=== PATIENT | male | born 1975 | race Caucasian/White ===

== ENCOUNTER → 2017-05-01 | Outpatient (CLI) | payer BC ==
--- NOTE | 2017-05-01 08:32 | XR ---
AP pelvis HISTORY: Trauma and pain, R 10.2 Single frontal view of the pelvis correlated to prior right hip and pelvis dated 06/28/2013 No interval change. Overlying artifact at the proximal right femur suspected. IMPRESSION: Stable exam, no significant abnormality is evident.
== END ==
LOC: RADXRMAIN 06:35
PROVIDERS: ATTEND Family Medicine
DX: R10.2 Pelvic and perineal pain (principal)
CPT/HCPCS: 72170

== ENCOUNTER 2019-04-22 17:26 | Emergency (ER) | payer BC ==
[2019-04-22 17:34] VITALS: RESP 18
--- NOTE | 2019-04-22 19:15 | XR ---
PROCEDURE: XR ribs LT w pa chest xray - 5V total DATE AND TIME: 04/22/2019 6:39 PM CLINICAL INDICATION: PHH; Pain TECHNIQUE: 5 views COMPARISON: 06/28/2013 FINDINGS: There is no pneumothorax or pleural effusion. There is no displaced fracture or malalignmen t. The soft tissues are unremarkable. No incidentals. IMPRESSION: NO ACUTE PROCESS.
[2019-04-22 19:25] VITALS: BP 125/91; PULSE 89; TEMP 98
--- NOTE | 2019-04-22 20:04 | ED ---
Chest Pain HPI - General Chief Complaint: Chest Pain Stated Complaint: Chest pain Time Seen by Provider: 04/22/19 18:03 Source: patient Mode of arrival: wheelchair Limitations: no limitations - History of Present Illness Initial Comments: This 45-year-old white male presents with a complaint of some left chest wall pain. He states that he fell just a short distance off of a ladder about 2 weeks ago. He's had some pain in his left anterior mid chest region. He states that it is worse with any sitting up type of activity. He is on low back normally and this seems to help with the pain. He denies any other injuries. There is no shortness of breath. No abdominal pain. No other complaints or modifying factors. - Related Data Home Medications Medication Instructions Recorded Confirmed Ibuprofen [Motrin Ib] 800 mg PO DAILY PRN 04/22/19 04/22/19 Previous Rx's Medication Instructions Recorded Cyclobenzaprine [Flexeril] 10 mg PO TID PRN #15 tab 12/11/15 Meloxicam 15 mg PO DAILY #1 pack 12/11/15 Allergies Allergy/AdvReac Type Severity Reaction Status Date / Time naproxen [From Naprosyn] AdvReac Itching Verified 04/22/19 18:01 Review of Systems ROS Statement: Those systems with pertinent positive or pertinent negative responses have been documented in the HPI. ROS Other: All systems not noted in ROS Statement are negative. Past Medical History Additional Past Medical History / Comment(s): back History of Any Multi-Drug Resistant Organisms: None Reported Past Surgical History: Orthopedic Surgery Past Psychological History: Anxiety, Depression Smoking Status: Never smoker Past Alcohol Use History: Occasional Past Drug Use History: None Reported General Exam - General Exam Comments Initial Comments: GENERAL: The patient is well nourished and well hydrated. VITAL SIGNS: Heart rate, blood pressure, respiratory rate reviewed as recorded in nurse's notes. EYES: Pupils are round and reactive. Extraocular movements are intact. No conjunctival / lid redness or swelling. ENT: No external evidence of injury, swelling, or ecchymosis. Airway is patent. Throat is clear. NECK: Nontender. No swelling or evidence of injury. No subcutaneous emphysema. Trachea is midline. No thyroid mass. HEART: Regular rate and rhythm. Good peripheral pulses. LUNGS/CHEST: Breath sounds clear and equal bilaterally. No rales, rhonchi, or wheezes. No ecchymosis, subcutaneous emphysema. There is some tenderness present to the anterolateral lateral mid left ribs. ABDOMEN: Abdomen soft without tenderness. No palpable masses or organomegaly. No peritoneal signs. No abdominal wall swelling or ecchymosis. EXTREMITIES: No extremity tenderness. Normal muscle tone and function. No thoracolumbar tenderness. NEUROLOGIC: Sensation is grossly intact. Cranial nerve exam reveals face is symmetrical, tongue is midline, speech is clear. SKIN: No abrasions or ecchymosis is noted. No induration or masses noted. PSYCHIATRIC: Alert and oriented. Appropriate behavior and judgment. Limitations: no limitations Course Vital Signs 04/22/19 04/22/19 17:31 19:24 Temperature 98.2 F 98 F Pulse Rate 101 H 89 Respiratory 18 18 Rate Blood Pressure 130/91 125/91 O2 Sat by Pulse 100 100 Oximetry Chest Pain MDM - MDM The patient was seen and examined. An x-ray was taken of the chest and left ribs. This was read out as negative per radiology. Upon my review I still suspect a left fifth rib fracture which does not appear displaced. There is no evidence of pneumothorax. It is felt as though he is stable for discharge. Is counseled regarding his diagnosis in detail. Disposition Clinical Impression: Left rib fracture Disposition: HOME SELF-CARE Condition: Good Instructions (If sedation given, give patient instructions): Rib Fracture (ED) Additional Instructions: Please use Motrin and/or Tylenol if needed for pain. Is patient prescribed a controlled substance at d/c from ED?: No Referrals: Vernon Cordero DO [Primary Care Provider] - 1-2 days Time of Disposition: 20:04
== END 2019-04-22 20:09 | disposition home or self-care (01) ==
LOC: EC 17:26
DX: S22.32XA Fracture of one rib, left side, initial encounter for closed fracture (principal); Z88.6 Allergy status to analgesic agent; W11.XXXA Fall on and from ladder, initial encounter
CPT/HCPCS: 93005; 99285

== ENCOUNTER 2021-07-13 09:38 | Emergency (ER) | payer BC ==
[2021-07-13 09:44] VITALS: BP 135/92; PULSE 115; RESP 18; TEMP 98
[2021-07-13] MEDS ORDERED: ORPHENADRINE 30 MG/ML 2 ML VIAL IM STA (10:08)
[2021-07-13] MEDS ORDERED: methylPREDNISolone SOD SUCCI 125 MG/2 ML VIAL IM ONE (10:08)
--- NOTE | 2021-07-13 10:35 | ED ---
Back Pain HPI - General Chief Complaint: Back Pain/Injury Stated Complaint: Low back pain Time Seen by Provider: 07/13/21 09:53 Source: patient, RN notes reviewed Limitations: no limitations - History of Present Illness Initial Comments: Patient is a 46-year-old male that presents to emergency department complaining of low back pain with radicular symptoms down his left lower extremity. He notes that he was bending over lifting furniture when he felt pain in his back. He notes that he does take Flexeril meloxicam and Tylenol at home for pain and spasms. He notes that he did take all those this morning. He denied any issues with urinary or bowel incontinence retention, saddle anesthesia. He was otherwise well-appearing. He notes that standing and walking aggravate the pain. He notes that alleviating factors is taking weight and pressure off of his left side. He denied chest pain first breath headache nausea vomiting diarrhea constipation fever fatigue chills. - Related Data Home Medications Medication Instructions Recorded Confirmed Ibuprofen [Motrin Ib] 800 mg PO DAILY PRN 04/22/19 04/22/19 Previous Rx's Medication Instructions Recorded Cyclobenzaprine [Flexeril] 10 mg PO TID PRN #15 tab 12/11/15 Meloxicam 15 mg PO DAILY #1 pack 12/11/15 predniSONE 50 mg PO DAILY #5 tab 07/13/21 Allergies Allergy/AdvReac Type Severity Reaction Status Date / Time bee venom protein (honey bee) Allergy Unknown Verified 07/13/21 09:40 Childhood naproxen [From Naprosyn] AdvReac Itching Verified 07/13/21 09:40 Review of Systems ROS Statement: Those systems with pertinent positive or pertinent negative responses have been documented in the HPI. ROS Other: All systems not noted in ROS Statement are negative. Past Medical History Past Medical History: Hyperlipidemia Additional Past Medical History / Comment(s): back History of Any Multi-Drug Resistant Organisms: None Reported Past Surgical History: Orthopedic Surgery Past Psychological History: No Psychological Hx Reported Smoking Status: Never smoker Past Alcohol Use History: Daily Past Drug Use History: None Reported General Exam Limitations: no limitations General appearance: alert, in no apparent distress Head exam: Present: atraumatic, normocephalic, normal inspection Eye exam: Present: normal appearance, PERRL, EOMI. Absent: scleral icterus, conjunctival injection, periorbital swelling ENT exam: Present: normal exam, mucous membranes moist Neck exam: Present: normal inspection Respiratory exam: Present: normal lung sounds bilaterally. Absent: respiratory distress, wheezes, rales, rhonchi, stridor Cardiovascular Exam: Present: regular rate, normal rhythm, normal heart sounds. Absent: systolic murmur, diastolic murmur, rubs, gallop, clicks Extremities exam: Present: normal inspection, full ROM, normal capillary refill. Absent: tenderness, pedal edema, joint swelling, calf tenderness Back exam: Present: normal inspection, tenderness (Left SI), muscle spasm (Left lower back) Neurological exam: Present: alert, oriented X3 Psychiatric exam: Present: normal affect, normal mood Skin exam: Present: warm, dry, intact, normal color. Absent: rash Course Vital Signs 07/13/21 09:40 Temperature 98 F Pulse Rate 115 H Respiratory 18 Rate Blood Pressure 135/92 O2 Sat by Pulse 100 Oximetry Medical Decision Making - Medical Decision Making 46-year-old male complaining of lower back pain after bending or lifting furniture. X-ray lumbar spine, 125 mg Solu-Medrol, 60 mg of Norflex ordered. X-ray negative for any acute fractures or dislocations just mild degenerative disc disease. Case discussed with Dr. Sterling, patient discharge home with follow-up to primary care. Patient most likely expressing sciatica with radicular symptoms on the left leg. Prednisone sent to pharmacy. - Radiology Data Radiology results: report reviewed, image reviewed Lumbar spine x-ray: Mild degenerative disc disease L5-S1 if there is concern for disc herniation consider MRI. Disposition Clinical Impression: Sciatica, Lumbar radiculopathy Disposition: HOME SELF-CARE Condition: Stable Instructions (If sedation given, give patient instructions): Acute Low Back Pain (ED) Additional Instructions: Please return to the Emergency Department if symptoms worsen or any other concerns. Follow-up with primary care 1-2 days. Take prednisone as prescribed. Take Tylenol 3 as prescribed. Avoid any shortness activity or exercise next several days. Is patient prescribed a controlled substance at d/c from ED?: No Referrals: Vernon Cordero DO [Primary Care Provider] - 1-2 days Time of Disposition: 11:15
--- NOTE | 2021-07-13 10:49 | XR ---
EXAM TYPE: LUMBAR SPINE X RAY SERIES COMPARISON: NONE HISTORY: Lower back pain TECHNIQUE: 4 views are submitted. FINDINGS: Alignment is anatomic. The pedicles are intact. The transverse processes are intact. There is no s pondylolysis or spondylolisthesis. Mild narrowing of the disc space L5-S1. IMPRESSION: 1. Mild degenerative disc disease L5-S1. If there is concern for disc herniation consider MRI.
[2021-07-13] MEDS ORDERED: ACET/COD 300 MG/30 MG STARTER PACK 6 TAB BTL PO STA (11:13)
== END 2021-07-13 11:53 | disposition home or self-care (01) ==
LOC: EC 09:38
DX: M51.16 Intervertebral disc disorders with radiculopathy, lumbar region (principal); E78.5 Hyperlipidemia, unspecified; Z88.6 Allergy status to analgesic agent
CPT/HCPCS: 99283; 96372 ×2; 72100; J2360; J2930

== ENCOUNTER → 2024-07-09 | Outpatient (CLI) | payer BC ==
--- NOTE | 2024-07-09 19:56 | MR ---
EXAMINATION TYPE: MR lumbar spine wo con DATE OF EXAM: 07/09/2024 7:24 PM CLINICAL INDICATION: Male, 49 years old with history of M47.061, M47.816 SPINAL STENOSIS LUMBAR REGIO N; PHH, low back pain that radiates into left buttock COMPARISON: None TECHNIQUE: Multi planar, multi sequence imaging was performed utilizing: T1-weighted, T2-weighted, a nd turbo inversion recovery imaging of the lumbar spine. IV Contrast: cc . (None if empty) FINDINGS: Alignment: The lumbar vertebral bodies have preserved heights and alignment. Cord: The conus medullaris and the distal spinal cord appear unremarkable with regards to their signa l intensity and morphology. Bones/Discs: Mild degeneration changes throughout the spine with osteophyte formation and facet joint arthropathy. Disc desiccation at L5-S1. Reactive adjoining endplate edema at L5-S1 T12-L1: No evidence of significant spinal canal stenosis or neural foraminal stenosis. L1-L2: No evidence of significant spinal canal stenosis or neural foraminal stenosis. L2-L3: No evidence of significant spinal canal stenosis or neural foraminal stenosis. L3-L4: No evidence of significant spinal canal stenosis or neural foraminal stenosis. L4-L5: No evidence of significant spinal canal stenosis or neural foraminal stenosis. L5-S1: The disc has a rounded posterior morphology without significant spinal canal stenosis. Facet j oint arthropathy with mild and moderate bilateral neural foraminal stenosis. No significant spinal canal or neural foraminal stenosis in the remainder of the visualized levels. Other findings: None. IMPRESSION: 1. No definitive evidence of disc herniation or significant spinal canal stenosis. 2. Mild disc degeneration with associated osteoarthritic changes worse at L5-S1 with complete joint space narrowing. No evidence for significant neural foraminal stenosis. [facility], , 07/09/2024 7:54 PM
== END | disposition home or self-care (01) ==
LOC: RADMRIMAIN 18:52
PROVIDERS: ATTEND Orthopaedic Surgery
DX: M47.817 Spondylosis without myelopathy or radiculopathy, lumbosacral region (principal); M51.379 Other intervertebral disc degeneration, lumbosacral region without mention of lumbar back pain or lower extremity pain; M48.061 Spinal stenosis, lumbar region without neurogenic claudication; M99.73 Connective tissue and disc stenosis of intervertebral foramina of lumbar region
CPT/HCPCS: 72148